=== PATIENT | female | born 1970 | race Caucasian/White ===

== ENCOUNTER 2017-07-24 21:11 | Emergency (ER) | payer SELFPAY ==
[2017-07-24 21:21] LABS: URINE APPEARANCE Clear; URINE BILIRUBIN Negative (NEGATIVE); URINE BLOOD Negative (NEGATIVE); URINE GLUCOSE (UA) 2+ (NEGATIVE); URINE KETONE Negative (NEGATIVE); URINE LEUK ESTERASE Negative (NEGATIVE); URINE NITRITE Negative (NEGATIVE); URINE PROTEIN Negative (NEGATIVE); URINE UROBILINOGEN 0.2 (0.2-1.0)
[2017-07-24 21:22] LABS: URINE COLOR YELLOW
[2017-07-24 21:25] VITALS: BP 178/73; PULSE 100; TEMP 98; BMI 37.5
--- NOTE | 2017-07-24 21:28 | PDOC ---
History of Present Illness - General History Source: Patient, Old Records, Other Exam Limitations: No Limitations - History of Present Illness Initial Comments: 07/24/17 21:36 The patient is a 47 year old female with a past medical history of diverticulitis and obesity who presents with abdominal pain for 6-8 weeks. The patient states that her pain began intermittently and became constant in the last 48 hours. The patient state that her pain feels warm and is triggered by movement. At 12pm today she took 600 mg of ibuprofen and symptoms subsided before coming back around 4 pm. She denies any dysuria, other medical problems or current medication. She notes that this pain feel similar to when she had diverticulitis in the past. <Abisai Dominguez - Last Filed: 07/24/17 21:36> <Dolly Rowe - Last Filed: 07/25/17 00:21> - General Chief Complaint: Pain, Acute Stated Complaint: ABD PAIN Time Seen by Provider: 07/24/17 21:12 Past History <Abisai Dominguez - Last Filed: 07/24/17 21:36> - Past Medical History COPD: No Other medical history: DENIES - Suicide/Smoking/Psychosocial Hx Smoking History: Current every day smoker Number of Cigarettes Smoked Daily: 10 Information on smoking cessation initiated: Yes 'Breaking Loose' booklet given: 07/24/17 <Dolly Rowe - Last Filed: 07/25/17 00:21> - Past Medical History Allergies/Adverse Reactions: Allergies Allergy/AdvReac Type Severity Reaction Status Date / Time No Known Allergies Allergy Unverified 07/24/17 21:13 Home Medications: Ambulatory Orders NK [No Known Home Medication] 07/24/17 Review of Systems - Review of Systems Able to Perform ROS?: Yes Comments:: 07/24/17 21:37 GENERAL/CONSTITUTIONAL: No fever or chills. No weakness. HEAD, EYES, EARS, NOSE AND THROAT: No change in vision. No ear pain or discharge. No sore throat. CARDIOVASCULAR: No chest pain or shortness of breath. RESPIRATORY: No cough, wheezing, or hemoptysis. GASTROINTESTINAL: No nausea, vomiting, diarrhea or constipation. GENITOURINARY: No dysuria, frequency, or change in urination. MUSCULOSKELETAL:(+) Abdominal pain. No neck or back pain. SKIN: No rash NEUROLOGIC: No headache, vertigo, loss of consciousness, or change in strength/ sensation. ENDOCRINE: No increased thirst. No abnormal weight change. HEMATOLOGIC/LYMPHATIC: No anemia, easy bleeding, or history of blood clots. ALLERGIC/IMMUNOLOGIC: No hives or skin allergy. <Abisai Dominguez - Last Filed: 07/24/17 21:36> *Physical Exam - Vital Signs Last Vital Signs Temp Pulse Resp BP Pulse Ox 98 F 100 H 16 178/73 100 07/24/17 21:11 07/24/17 21:11 07/24/17 21:11 07/24/17 21:11 07/24/17 21:11 - Physical Exam Comments: 07/24/17 21:37 GENERAL: Awake, alert, and fully oriented, in no acute distress HEAD: No signs of trauma EYES: PERRLA, EOMI, sclera anicteric, conjunctiva clear ENT: Auricles normal inspection, hearing grossly normal, nares patent, oropharynx clear without exudates. Moist mucosa NECK: Normal ROM, supple, no lymphadenopathy, JVD, or masses LUNGS: Breath sounds equal, clear to auscultation bilaterally. No wheezes, and no crackles HEART: Regular rate and rhythm, normal S1 and S2, no murmurs, rubs or gallops ABDOMEN: (+) LLQ tenderness on palpation. Obese abdomen. Normoactive bowel sounds. No guarding, no rebound. No masses EXTREMITIES: Normal range of motion, no edema. No clubbing or cyanosis. No cords, erythema, or tenderness NEUROLOGICAL: Cranial nerves II through XII grossly intact. Normal speech, normal gait SKIN: Warm, Dry, normal turgor, no rashes or lesions noted. <Abisai Dominguez - Last Filed: 07/24/17 21:36> - Vital Signs Last Vital Signs Temp Pulse Resp BP Pulse Ox 98 F 100 H 16 178/73 100 07/24/17 21:11 07/24/17 21:11 07/24/17 21:11 07/24/17 21:11 07/24/17 21:11 <Dolly Rowe - Last Filed: 07/25/17 00:21> ED Treatment Course - ADDITIONAL ORDERS Additional order review: Laboratory Results 07/24/17 21:13 Urine Color Yellow Urine Appearance Clear Urine pH 7.0 Ur Specific [place] 1.020 Urine Protein Negative Urine Glucose (UA) 2+ H Urine Ketones Negative Urine Blood Negative Urine Nitrite Negative Urine Bilirubin Negative Urine Urobilinogen 0.2 Ur Leukocyte Esterase Negative Urine HCG, Qual Negative <Abisai Dominguez - Last Filed: 07/24/17 21:36> - LABORATORY CBC & Chemistry Diagram: 07/24/17 21:43 07/24/17 21:43 - ADDITIONAL ORDERS Additional order review: Laboratory Results 07/24/17 21:13 Urine Color Yellow Urine Appearance Clear Urine pH 7.0 Ur Specific [place] 1.020 Urine Protein Negative Urine Glucose (UA) 2+ H Urine Ketones Negative Urine Blood Negative Urine Nitrite Negative Urine Bilirubin Negative Urine Urobilinogen 0.2 Ur Leukocyte Esterase Negative Urine HCG, Qual Negative <Dolly Rowe - Last Filed: 07/25/17 00:21> Medical Decision Making - Medical Decision Making 07/24/17 21:32 a/p: 47yo female with LLQ pain -hx of diverticulitis in the past and feels similar to prior episodes even though on other side -suspect given LLQ pain that the patient has diverticulitis again -will obtain labs, ct abd/pelvis -will medicate and reassess -fam hx of kidney stones, will obtain ua to assess for blood -urine preg 07/25/17 00:13 discussed labs and imaging. Pt with glucose of 190 on labs and glucose in urine. Has not been dx with diabetes but states she had gestational diabetes. Discussed monitoring glucose at home. Discussed watching diet and avoiding high glucose products. Discussed glycemic index and diet and exercise. Discussed needing fasting glucose given that today is not fasting. CT showed 1.9cm renal complex cyst. Discussed need for follow up and need for urologic eval. DIscussed need for the patient to have PMD. Pt verbalized understanding of all instructions. Pt is stable at this time for d.c to home. ALl questions answered. Pt and understand all instructions. <Dolly Rowe - Last Filed: 07/25/17 00:21> *DC/Admit/Observation/Transfer - Attestations Scribe Attestion: 07/24/17 21:37 Documentation prepared by Abisai Dominguez, acting as director global medical affairs for Dolly Rowe DO, MD/. <Abisai Dominguez - Last Filed: 07/24/17 21:36> - Discharge Dispostion Admit: No - Attestations Physician Attestion: 07/25/17 00:21 I, Dr. Dolly Rowe DO, attest that this document has been prepared under my direction and personally reviewed by me in its entirety. I further attest, that it accurately reflects all work, treatment, procedures and medical decision -making performed by me. <Dolly Rowe - Last Filed: 07/25/17 00:21> Diagnosis at time of Disposition: Hyperglycemia, Abdominal pain - Discharge Dispostion Disposition: HOME Condition at time of disposition: Stable - Referrals Referrals: Yuriy Sosa MD [Staff Physician] - Alecia Pond MD [Staff Physician] - Sandeep Jeffries MD [Staff Physician] - - Patient Instructions Printed Discharge Instructions: DI for Abdominal Pain-Adult, DI for Hyperglycemia -- Adult Additional Instructions: Please make a follow up appointment to see a primary care provider in the next 2 -3 days. Please watch your sugar intake. Please take all meds as discussed. Please follow up with a urologist for the kidney cyst. Please return to the ED with any further concerns.
[2017-07-24] MEDS ORDERED: SODIUM CHLORIDE 0.9% 1000 ML INFUS.BAG IV ONE (21:29)
[2017-07-24] MEDS ORDERED: morphine CARPU-JECT 2 MG/1 ML DISP.SYRIN IVPUSH ONE (21:29)
[2017-07-24] MEDS ORDERED: morphine CARPU-JECT 2 MG/1 ML DISP.SYRIN ONE (21:44)
[2017-07-24 22:01] LABS: BASOPHIL 0.6 % (0-2.0); EOSINOPHIL 1.7 % (0-4.5); MCH 29.9 pg (25.7-33.7); MCHC 34.4 g/dl (32.0-36.0); MEAN CELL VOLUME 86.9 fl (80-96); MEAN PLT VOLUME 9.6 fl (7.5-11.1); NEUTROPHILS 69.2 % (42.8-82.8); PLATELET COUNT 270 K/MM3 (134-434); RDW 12.6 % (11.6-15.6); WHITE BLOOD COUNT 11.3 K/mm3 (4.0-10.8)
[2017-07-24 22:15] LABS: ALBUMIN 3.7 g/dl (3.5-5.0); ALK PHOS 95 U/L (32-92); ANION GAP 7 (8-16); BILIRUBIN,TOTAL 0.4 mg/dl (0.2-1.0); CALCIUM 9.5 mg/dl (8.4-10.2); CO2 26 mmol/L (22-28); CREATININE 0.7 mg/dl (0.6-1.3); GLUCOSE,RANDOM 190 mg/dl (74-106); MAGNESIUM 1.9 mg/dL (1.8-2.4); SGOT/AST 15 U/L (10-42); SGPT/ALT 18 U/L (10-40); TOT PROT 6.6 g/dl (6.4-8.3)
== END 2017-07-25 00:30 | disposition home or self-care (01) ==
LOC: FER 21:11
PROC: 3E033NZ Introduction of Analgesics, Hypnotics, Sedatives into Peripheral Vein, Percutaneous Approach (ICD-10-PCS; principal; 2017-07-24)
PROC: 3E0337Z Introduction of Electrolytic and Water Balance Substance into Peripheral Vein, Percutaneous Approach (ICD-10-PCS; 2017-07-24)
DX: R73.9 Hyperglycemia, unspecified (principal); R10.32 Left lower quadrant pain
CPT/HCPCS: 36415; 74177-TC; 80053; 81003; 83605; 83690; 83735; 84703; 85025; 99283-25